=== PATIENT | female | born 1980 | race Caucasian/White ===

== ENCOUNTER 2022-06-23 20:12 | Emergency (ER) | payer OTHER ==
[2022-06-23] MEDS ORDERED: Ketorolac Tromethamine 30 MG/ML VIAL ONE (22:45)
[2022-06-23] MEDS ORDERED: Morphine 4 MG/ML VIAL ONE (22:45)
== END 2022-06-23 23:45 | disposition home or self-care (01) ==
LOC: ERS 20:12
DX: M54.16 Radiculopathy, lumbar region (principal); I10 Essential (primary) hypertension; E78.00 Pure hypercholesterolemia, unspecified; F17.210 Nicotine dependence, cigarettes, uncomplicated
CPT/HCPCS: 96372; J1885; J2270

== ENCOUNTER 2024-03-30 05:46 | Inpatient (IN) | payer SELFPAY ==
[2024-03-30] MEDS ORDERED: Ondansetron PF 4 MG/2 ML Vial IVP PRN (07:53)
[2024-03-30] MEDS ORDERED: Fioricet 325/50/40 mg Tablet PO PRN (08:39)
[2024-03-30] MEDS: Ipratropium/Albuterol 3 ML NEB NEB SCH ×2 (08:49→11:12)
[2024-03-30] MEDS: Enoxaparin 40 MG (0.4 mL) SYRINGE SC SCH (09:03)
[2024-03-30] MEDS: ALPRAZolam 0.25 MG TAB PO SCH ×3 (09:04→20:25)
[2024-03-30] MEDS: methylPREDNISolone Sod Succ/PF 125 MG/2 ML VIAL IVP SCH (09:04)
[2024-03-30] MEDS: Nicotine 21 MG PATCH TD SCH (09:04)
[2024-03-30] MEDS: Benzonatate 100 MG CAP PO PRN (09:41)
[2024-03-30] MEDS: guaiFENesin ER 600 MG TAB PO SCH ×2 (09:41→20:25)
[2024-03-30] MEDS: Acetaminophen 325 MG TAB PO PRN (09:44)
[2024-03-30] MEDS: Magnesium Sulfate In Water 4 GM in Premix 1 BAG IVPB SCH (12:21)
[2024-03-30] MEDS: Azithromycin 500 MG in Sodium Chloride 0.9% 250 ML 250 ML IVPB SCH (13:24)
[2024-03-30] MEDS: Ipratropium/Albuterol 3 ML NEB NEB PRN (13:45)
[2024-03-30 15:25] LABS: Actual Bicarbonate (HCO3a) 22.6 mEq/L (22-28); Base Excess (BEa) -2.9 mEq/L (-2.0 to +3.0); CO2 Tension 41.5 mmHg (35.0-45.0); Carboxyhemoglobin (COHb) 1.4 gm% (0.0-3.0); Hematocrit-ABG 41 % (36.0-47.0); Hemoglobin (Hb) 14.1 g/dL (12.0-16.0); O2 Tension (PaO2), arterial 68.1 mmHg (80.0-100.0); Potassium - ABG Lab 4.18 mmol/L (3.70-5.30); pH, Arterial 7.353 (7.35-7.45)
[2024-03-30 15:29] LABS: ALV-art Gradient 108.185 mmHg (0-20); Puncture Site Left Radial artery
[2024-03-30 17:23] LABS: BHCG - Serum Negative (NEGATIVE); Pregs Control Background? CLEAR/WHITE (CLR/WHITE); Pregs Control Bar Appear? YES (CONTROL BAR)
[2024-03-30] MEDS: Mometasone 200 MCG/Formoterol 5 MCG 120 PUFF INHALER INH SCH (18:12)
[2024-03-30] MEDS: Loratadine 10 MG TAB PO SCH (20:26)
[2024-03-31] MEDS: Dexmedetomidine In 0.9 % NaCl 100 ML IVPB SCH (03:52)
[2024-03-31 05:58] LABS: #Basophils Less than 0.03 10x3/uL (0.0-0.2); #Eosinophils Less than 0.03 10x3/uL (0.0-0.7); %Basophils 0.2 % (0.0-1.0); %Lymphocytes 4.9 % (21.0-51.0); %Monocytes 7.8 % (0.0-10.0); %Neutrophils 85.9 % (42.0-75.0); Hematocrit 44.1 % (36.0-47.0); Mean Corpuscular HGB CONC 31.7 g/dL (32.0-36.0); Mean Corpuscular Hemoglobin 30.1 pg (27.0-31.0); Mean Corpuscular Volume 94.8 fL (78.0-98.0); Mean Platelet Volume 10.8 fL (7.4-10.4); Platelet Count 227 10x3/uL (130-400); RBC Distribution Width 14.1 % (11.5-14.5); Red Blood Cell (RBC) Count 4.65 mill/uL (4.20-5.40)
[2024-03-31] MEDS: hydrALAZINE 20 MG/ML VIAL SLOW IVP PRN (06:09)
[2024-03-31 06:24] LABS: Anion Gap 13 mmol/L (10-20); BUN (Urea Nitrogen) 11 mg/dL (7.0-18.7); Calc. Creatinine Clearance 198 mL/min (70-130); Calcium 8.4 mg/dL (7.8-10.44); Carbon Dioxide 23 mmol/L (22-29); Chloride 105 mmol/L (98-107); Estimated GFR 116; Glucose 120 mg/dL (70-105); Potassium 5.4 mmol/L (3.5-5.1); Sodium 136 mmol/L (136-145)
[2024-03-31] MEDS: Labetalol HCl 100 MG/20 ML VIAL SLOW IVP PRN (09:16)
[2024-03-31] MEDS: Magnesium 2 GM/50 ML(in water) 2 GM in Premix 1 BAG IVPB SCH (09:18)
[2024-03-31] MEDS: Ipratropium/Albuterol 3 ML NEB NEB SCH (09:44)
[2024-03-31 09:52] LABS: Actual Bicarbonate (HCO3a) 27.7 mEq/L (22-28); Base Excess (BEa) -2.4 mEq/L (-2.0 to +3.0); Calcium, Ionized (arterial) 1.18 mmol/L (1.12-1.30); Carboxyhemoglobin (COHb) 0.8 gm% (0.0-3.0); Hematocrit-ABG 45 % (36.0-47.0); Hemoglobin (Hb) 15.2 g/dL (12.0-16.0); O2 Tension (PaO2), arterial 112.7 mmHg (80.0-100.0); Potassium - ABG Lab 5.36 mmol/L (3.70-5.30)
[2024-03-31 09:59] LABS: ALV-art Gradient 152.925 mmHg (0-20); CO2 Tension 72.7 mmHg (35.0-45.0); Puncture Site Right Radial artery; pH, Arterial 7.199 (7.35-7.45)
[2024-03-31] MEDS: Propofol 1,000 MG/100 ML VIAL IV ONE (10:00)
[2024-03-31] MEDS: Fentanyl CADD 100 ML ONE (11:07)
[2024-03-31] MEDS ORDERED: Morphine 2 MG/ML VIAL SLOW IVP PRN (12:00)
[2024-03-31] MEDS ORDERED: DISCONTINUE PREVIOUS NARCOTIC PAIN MEDICATIONS AND BENZODIAZEPINES FS SCH (12:00)
[2024-03-31] MEDS ORDERED: Fentanyl BOLUS 250 ML IVPB PRN (12:00)
[2024-03-31] MEDS ORDERED: Propofol BOLUS 1,000 MG/100 ML VIAL IV PRN (12:00)
[2024-03-31] MEDS: Propofol 1,000 MG/100 ML VIAL IV PRN (12:53)
[2024-03-31 14:32] LABS: Actual Bicarbonate (HCO3a) 28.4 mEq/L (22-28); Base Excess (BEa) 0.7 mEq/L (-2.0 to +3.0); CO2 Tension 59.2 mmHg (35.0-45.0); O2 Tension (PaO2), arterial 94.5 mmHg (80.0-100.0); pH, Arterial 7.299 (7.35-7.45)
[2024-03-31 14:33] LABS: Calcium, Ionized (arterial) 1.14 mmol/L (1.12-1.30); Carboxyhemoglobin (COHb) 0.9 gm% (0.0-3.0); Hematocrit-ABG 41 % (36.0-47.0); Potassium - ABG Lab 4.52 mmol/L (3.70-5.30)
[2024-03-31] MEDS: Dextrose 50% Abboject 50 ML SYRINGE SLOW IVP SCH (17:51)
[2024-03-31] MEDS: Insulin Regular, Human 100 UNIT/ML 10 ML VIAL IVP SCH (17:52)
[2024-03-31] MEDS: THEOPHYLLINE 80 MG/15 ML PO SCH (19:04)
[2024-03-31] MEDS: UDCUP PO SCH (19:04)
[2024-03-31] MEDS ORDERED: GUAIFENESIN SF SOLN 200 MG/10 ML UDCUP PER TUBE PRN (20:29)
[2024-03-31] MEDS: Montelukast Sodium 10 mg Tablet PO SCH (20:49)
[2024-03-31] MEDS: Lorazepam 2 MG/ML VIAL SLOW IVP PRN (21:12)
[2024-04-01] MEDS: Fentanyl CADD 100 ML IV SCH (02:42)
[2024-04-01] MEDS ORDERED: Fioricet 325/50/40 mg Tablet PER TUBE PRN (03:32)
[2024-04-01] MEDS ORDERED: Benzonatate 100 MG CAP PO PRN (03:35)
[2024-04-01] MEDS: UDCUP PER TUBE SCH (05:44)
[2024-04-01] MEDS: THEOPHYLLINE 80 MG/15 ML PER TUBE SCH (05:44)
[2024-04-01 05:59] LABS: #Basophils Less than 0.03 10x3/uL (0.0-0.2); #Eosinophils Less than 0.03 10x3/uL (0.0-0.7); %Basophils 0.1 % (0.0-1.0); %Lymphocytes 4.3 % (21.0-51.0); %Monocytes 8.4 % (0.0-10.0); %Neutrophils 86.7 % (42.0-75.0); Hematocrit 40.3 % (36.0-47.0); Hemoglobin 12.8 g/dL (12.0-16.0); Mean Corpuscular HGB CONC 31.8 g/dL (32.0-36.0); Mean Corpuscular Hemoglobin 30.3 pg (27.0-31.0); Mean Corpuscular Volume 95.5 fL (78.0-98.0); Mean Platelet Volume 11.3 fL (7.4-10.4); Platelet Count 219 10x3/uL (130-400); RBC Distribution Width 14.5 % (11.5-14.5); Red Blood Cell (RBC) Count 4.22 mill/uL (4.20-5.40)
[2024-04-01] MEDS ORDERED: UDCUP PO SCH ×2 (06:00→09:00)
[2024-04-01] MEDS ORDERED: THEOPHYLLINE 80 MG/15 ML PO SCH ×2 (06:00→09:00)
[2024-04-01 06:46] LABS: Anion Gap 14 mmol/L (10-20); BUN (Urea Nitrogen) 25 mg/dL (7.0-18.7); Calc. Creatinine Clearance 142 mL/min (70-130); Calcium 8.6 mg/dL (7.8-10.44); Carbon Dioxide 27 mmol/L (22-29); Chloride 101 mmol/L (98-107); Estimated GFR 107; Glucose 137 mg/dL (70-105); Potassium 4.5 mmol/L (3.5-5.1); Sodium 137 mmol/L (136-145)
[2024-04-01 08:29] LABS: Actual Bicarbonate (HCO3a) 30.4 mEq/L (22-28); Base Excess (BEa) 2.9 mEq/L (-2.0 to +3.0); CO2 Tension 59.3 mmHg (35.0-45.0); Calcium, Ionized (arterial) 1.14 mmol/L (1.12-1.30); Carboxyhemoglobin (COHb) 0.5 gm% (0.0-3.0); Hematocrit-ABG 40 % (36.0-47.0); Hemoglobin (Hb) 13.6 g/dL (12.0-16.0); O2 Tension (PaO2), arterial 105.8 mmHg (80.0-100.0); Potassium - ABG Lab 4.43 mmol/L (3.70-5.30); pH, Arterial 7.327 (7.35-7.45)
[2024-04-01 08:31] LABS: Puncture Site Right Radial artery
[2024-04-01 08:32] LABS: ALV-art Gradient 140.925 mmHg (0-20)
[2024-04-01] MEDS ORDERED: Sterile Water 10 ML VIAL FS PRN (20:47)
[2024-04-01] MEDS: Montelukast Sodium 10 mg Tablet PER TUBE SCH (21:14)
[2024-04-01] MEDS: Vecuronium 10 MG VIAL IV SCH (21:14)
[2024-04-02] MEDS: Vecuronium Bromide 50 MG in Sodium Chloride 0.9% 250 ML 250 ML IV SCH (00:49)
[2024-04-02 04:45] LABS: #Basophils Less than 0.03 10x3/uL (0.0-0.2); #Eosinophils Less than 0.03 10x3/uL (0.0-0.7); %Basophils 0.1 % (0.0-1.0); %Lymphocytes 5.2 % (21.0-51.0); %Monocytes 10.4 % (0.0-10.0); %Neutrophils 83.1 % (42.0-75.0); Hematocrit 39.1 % (36.0-47.0); Hemoglobin 12.6 g/dL (12.0-16.0); Mean Corpuscular HGB CONC 32.2 g/dL (32.0-36.0); Mean Corpuscular Hemoglobin 30.9 pg (27.0-31.0); Mean Corpuscular Volume 95.8 fL (78.0-98.0); Mean Platelet Volume 11.2 fL (7.4-10.4); Platelet Count 204 10x3/uL (130-400); RBC Distribution Width 13.7 % (11.5-14.5); Red Blood Cell (RBC) Count 4.08 mill/uL (4.20-5.40)
[2024-04-02 05:16] LABS: Anion Gap 12 mmol/L (10-20); BUN (Urea Nitrogen) 22 mg/dL (7.0-18.7); Calc. Creatinine Clearance 155 mL/min (70-130); Calcium 8.2 mg/dL (7.8-10.44); Carbon Dioxide 31 mmol/L (22-29); Chloride 100 mmol/L (98-107); Estimated GFR 111; Glucose 146 mg/dL (70-105); Potassium 4.5 mmol/L (3.5-5.1); Sodium 138 mmol/L (136-145)
[2024-04-02 08:22] LABS: Actual Bicarbonate (HCO3a) 32.8 mEq/L (22-28); Base Excess (BEa) 5.8 mEq/L (-2.0 to +3.0); CO2 Tension 58.2 mmHg (35.0-45.0); Hematocrit-ABG 39 % (36.0-47.0); Hemoglobin (Hb) 13.4 g/dL (12.0-16.0); O2 Tension (PaO2), arterial 60.7 mmHg (80.0-100.0); Potassium - ABG Lab 4.38 mmol/L (3.70-5.30); pH, Arterial 7.369 (7.35-7.45)
[2024-04-02 08:30] LABS: Puncture Site Left Radial artery
[2024-04-03 05:36] LABS: #Basophils Less than 0.03 10x3/uL (0.0-0.2); #Eosinophils Less than 0.03 10x3/uL (0.0-0.7); %Basophils 0.2 % (0.0-1.0); %Lymphocytes 7.6 % (21.0-51.0); %Monocytes 7.5 % (0.0-10.0); %Neutrophils 83.7 % (42.0-75.0); Hematocrit 34.6 % (36.0-47.0); Hemoglobin 11.3 g/dL (12.0-16.0); Mean Corpuscular HGB CONC 32.7 g/dL (32.0-36.0); Mean Corpuscular Hemoglobin 30.8 pg (27.0-31.0); Mean Corpuscular Volume 94.3 fL (78.0-98.0); Mean Platelet Volume 10.6 fL (7.4-10.4); Platelet Count 179 10x3/uL (130-400); RBC Distribution Width 13.5 % (11.5-14.5); Red Blood Cell (RBC) Count 3.67 mill/uL (4.20-5.40)
[2024-04-03 06:47] LABS: Anion Gap 12 mmol/L (10-20); BUN (Urea Nitrogen) 16 mg/dL (7.0-18.7); Calc. Creatinine Clearance 145 mL/min (70-130); Calcium 8.2 mg/dL (7.8-10.44); Carbon Dioxide 33 mmol/L (22-29); Chloride 99 mmol/L (98-107); Estimated GFR 107; Glucose 172 mg/dL (70-105); Potassium 3.9 mmol/L (3.5-5.1); Sodium 140 mmol/L (136-145)
[2024-04-03 07:09] LABS: Actual Bicarbonate (HCO3a) 32.6 mEq/L (22-28); Base Excess (BEa) 7.5 mEq/L (-2.0 to +3.0); CO2 Tension 47.8 mmHg (35.0-45.0); Calcium, Ionized (arterial) 1.08 mmol/L (1.12-1.30); Carboxyhemoglobin (COHb) 0.9 gm% (0.0-3.0); Hematocrit-ABG 36 % (36.0-47.0); Hemoglobin (Hb) 12.4 g/dL (12.0-16.0); O2 Tension (PaO2), arterial 61.1 mmHg (80.0-100.0); Puncture Site Right Radial artery; pH, Arterial 7.451 (7.35-7.45)
[2024-04-03] MEDS: Acetaminophen 650 MG/20.3 ML UDCUP PER TUBE PRN (09:08)
[2024-04-03] MEDS: Ipratropium/Albuterol 3 ML NEB NEB SCH (14:07)
[2024-04-03] MEDS ORDERED: ALPRAZolam 0.25 MG TAB PO PRN (23:38)
[2024-04-04 05:33] LABS: Anion Gap 13 mmol/L (10-20); BUN (Urea Nitrogen) 18 mg/dL (7.0-18.7); Calc. Creatinine Clearance 141 mL/min (70-130); Calcium 8.6 mg/dL (7.8-10.44); Carbon Dioxide 31 mmol/L (22-29); Chloride 96 mmol/L (98-107); Estimated GFR 103; Glucose 281 mg/dL (70-105); Potassium 3.7 mmol/L (3.5-5.1); Sodium 136 mmol/L (136-145)
[2024-04-04 06:25] LABS: Hematocrit 33.6 % (36.0-47.0); Hemoglobin 10.8 g/dL (12.0-16.0); Mean Corpuscular HGB CONC 32.1 g/dL (32.0-36.0); Mean Corpuscular Hemoglobin 30.6 pg (27.0-31.0); Mean Corpuscular Volume 95.2 fL (78.0-98.0); Mean Platelet Volume 11.2 fL (7.4-10.4); Platelet Count 174 10x3/uL (130-400); RBC Distribution Width 13.9 % (11.5-14.5); Red Blood Cell (RBC) Count 3.53 mill/uL (4.20-5.40)
[2024-04-04 07:22] LABS: Actual Bicarbonate (HCO3a) 32.7 mEq/L (22-28); Base Excess (BEa) 8.5 mEq/L (-2.0 to +3.0); CO2 Tension 43.4 mmHg (35.0-45.0); Carboxyhemoglobin (COHb) 0.3 gm% (0.0-3.0); Hematocrit-ABG 35 % (36.0-47.0); Hemoglobin (Hb) 11.9 g/dL (12.0-16.0); Potassium - ABG Lab 3.73 mmol/L (3.70-5.30); pH, Arterial 7.495 (7.35-7.45)
[2024-04-04 07:25] LABS: Puncture Site Right Radial artery
[2024-04-04 07:30] LABS: Anisocytosis SLIGHT = 6-15 cells HPF (0-5); Band 42 % (5-11); Basophilic Stippling SLIGHT = 1-2 cells HPF (None Seen); Large Platelets 2.9 % (0-5); Lymphocytes 6 % (21-51); Macrocytosis SLIGHT = 6-15 cells HPF (0-5); Metamyelocyte 3 % (0-0); Monocytes 9 % (0-10); Myelocyte 1 % (0-0); Neutrophil 40 % (42-75); Platelet Adequacy Comment Platelets Normal; Polychromasia SLIGHT = 2-3 cells HPF (0-2); Smudge Cells 21.4 %
[2024-04-04] MEDS: ALPRAZolam 0.25 MG TAB PO SCH (09:21)
[2024-04-04] MEDS ORDERED: Vecuronium 10 MG VIAL IV PRN (13:48)
[2024-04-04] MEDS: cefTRIAXone\\ROCEPHIN 2 GM in Sodium Chloride 0.9% 100 ML IVPB SCH (14:32)
[2024-04-05 05:25] LABS: Anion Gap 11 mmol/L (10-20); BUN (Urea Nitrogen) 21 mg/dL (7.0-18.7); Calc. Creatinine Clearance 163 mL/min (70-130); Carbon Dioxide 34 mmol/L (22-29); Chloride 95 mmol/L (98-107); Estimated GFR 111; Glucose 299 mg/dL (70-105); Potassium 4.3 mmol/L (3.5-5.1); Sodium 136 mmol/L (136-145)
[2024-04-05 05:32] LABS: Hematocrit 31.5 % (36.0-47.0); Hemoglobin 9.9 g/dL (12.0-16.0); Mean Corpuscular HGB CONC 31.4 g/dL (32.0-36.0); Mean Corpuscular Hemoglobin 30.2 pg (27.0-31.0); Mean Platelet Volume 11.5 fL (7.4-10.4); Platelet Count 165 10x3/uL (130-400); RBC Distribution Width 13.6 % (11.5-14.5); Red Blood Cell (RBC) Count 3.28 mill/uL (4.20-5.40)
[2024-04-05 06:18] LABS: Band 36 % (5-11); Large Platelets 7.6 % (0-5); Lymphocytes 8 % (21-51); Monocytes 3 % (0-10); Neutrophil 53 % (42-75); Platelet Adequacy Comment Platelets Normal; Polychromasia SLIGHT = 2-3 cells HPF (0-2); Smudge Cells 1.9 %
[2024-04-05 07:29] LABS: Calcium 9.2 mg/dL (7.8-10.44)
[2024-04-05 08:28] LABS: Actual Bicarbonate (HCO3a) 37.3 mEq/L (22-28); CO2 Tension 58.7 mmHg (35.0-45.0); Calcium, Ionized (arterial) 1.15 mmol/L (1.12-1.30); Carboxyhemoglobin (COHb) 0.4 gm% (0.0-3.0); Hematocrit-ABG 32 % (36.0-47.0); Hemoglobin (Hb) 10.8 g/dL (12.0-16.0); pH, Arterial 7.421 (7.35-7.45)
[2024-04-05 08:33] LABS: ALV-art Gradient 144.825 mmHg (0-20); Puncture Site Left Radial artery
[2024-04-05] MEDS: methylPREDNISolone Sod Succ 40 MG VIAL IVP SCH (09:15)
[2024-04-06 04:22] LABS: Anion Gap 16 mmol/L (10-20); BUN (Urea Nitrogen) 32 mg/dL (7.0-18.7); Calc. Creatinine Clearance 159 mL/min (70-130); Calcium 8.8 mg/dL (7.8-10.44); Carbon Dioxide 32 mmol/L (22-29); Chloride 96 mmol/L (98-107); Estimated GFR 111; Glucose 365 mg/dL (70-105); Sodium 139 mmol/L (136-145)
[2024-04-06 04:28] LABS: Hematocrit 30.8 % (36.0-47.0); Hemoglobin 9.7 g/dL (12.0-16.0); Mean Corpuscular HGB CONC 31.5 g/dL (32.0-36.0); Mean Corpuscular Hemoglobin 30.3 pg (27.0-31.0); Mean Corpuscular Volume 96.3 fL (78.0-98.0); Mean Platelet Volume 11.3 fL (7.4-10.4); Platelet Count 196 10x3/uL (130-400); RBC Distribution Width 13.2 % (11.5-14.5)
[2024-04-06 07:23] LABS: Band 26 % (5-11); Lymphocytes 3 % (21-51); Metamyelocyte 4 % (0-0); Monocytes 4 % (0-10); Myelocyte 4 % (0-0); Neutrophil 59 % (42-75); Nucleated RBC (Manual Ct) 1 % (0); Platelet Adequacy Comment Platelets Normal; Polychromasia SLIGHT = 2-3 cells HPF (0-2)
[2024-04-06 08:49] LABS: ALV-art Gradient 148.625 mmHg (0-20); Base Excess (BEa) 7.3 mEq/L (-2.0 to +3.0); CO2 Tension 52.7 mmHg (35.0-45.0); Calcium, Ionized (arterial) 1.17 mmol/L (1.12-1.30); Carboxyhemoglobin (COHb) 0.6 gm% (0.0-3.0); Hematocrit-ABG 32 % (36.0-47.0); O2 Tension (PaO2), arterial 70.7 mmHg (80.0-100.0); Potassium - ABG Lab 5.03 mmol/L (3.70-5.30); Puncture Site Left Radial artery; pH, Arterial 7.415 (7.35-7.45)
[2024-04-06] MEDS: Furosemide 40 MG (4 mL) VIAL IVP SCH (10:24)
[2024-04-07] MEDS ORDERED: Dextrose 5% in Water 1,000 ML IV PRN (03:56)
[2024-04-07] MEDS ORDERED: Glucagon 1 MG/ML KIT IM PRN (03:56)
[2024-04-07] MEDS ORDERED: Dextrose 50% Abboject 50 ML SYRINGE SLOW IVP PRN (03:56)
[2024-04-07] MEDS: Insulin Lispro 100 UNIT/ML 10 ML VIAL SC PRN (04:33)
[2024-04-07 04:41] LABS: Hematocrit 31.2 % (36.0-47.0); Mean Corpuscular HGB CONC 32.1 g/dL (32.0-36.0); Mean Corpuscular Hemoglobin 30.5 pg (27.0-31.0); Mean Corpuscular Volume 95.1 fL (78.0-98.0); Platelet Count 211 10x3/uL (130-400); RBC Distribution Width 13.2 % (11.5-14.5); Red Blood Cell (RBC) Count 3.28 mill/uL (4.20-5.40)
[2024-04-07 04:52] LABS: Anion Gap 14 mmol/L (10-20); BUN (Urea Nitrogen) 33 mg/dL (7.0-18.7); Calc. Creatinine Clearance 183 mL/min (70-130); Calcium 8.5 mg/dL (7.8-10.44); Carbon Dioxide 33 mmol/L (22-29); Chloride 95 mmol/L (98-107); Estimated GFR 114; Glucose 350 mg/dL (70-105); Potassium 4.9 mmol/L (3.5-5.1); Sodium 137 mmol/L (136-145)
[2024-04-07 05:10] LABS: Band 11 % (5-11); Hypochromia SLIGHT = 6-15 cells HPF (0-5); Lymphocytes 2 % (21-51); Macrocytosis SLIGHT = 6-15 cells HPF (0-5); Metamyelocyte 9 % (0-0); Monocytes 12 % (0-10); Myelocyte 10 % (0-0); Neutrophil 56 % (42-75); Platelet Adequacy Comment Platelets Normal; Polychromasia SLIGHT = 2-3 cells HPF (0-2)
[2024-04-07 07:29] LABS: Actual Bicarbonate (HCO3a) 31.3 mEq/L (22-28); Base Excess (BEa) 5.7 mEq/L (-2.0 to +3.0); CO2 Tension 50.3 mmHg (35.0-45.0); Calcium, Ionized (arterial) 1.13 mmol/L (1.12-1.30); Carboxyhemoglobin (COHb) 1.1 gm% (0.0-3.0); Hematocrit-ABG 33 % (36.0-47.0); Hemoglobin (Hb) 11.3 g/dL (12.0-16.0); pH, Arterial 7.412 (7.35-7.45)
[2024-04-07 07:36] LABS: O2 Tension (PaO2), arterial 58.4 mmHg (80.0-100.0)
[2024-04-07 07:37] LABS: ALV-art Gradient 92.625 mmHg (0-20); Puncture Site Left Radial artery
[2024-04-07] MEDS: methylPREDNISolone Sod Succ 40 MG VIAL IVP SCH (08:54)
[2024-04-07] MEDS: Amlodipine 10 MG TAB PER TUBE SCH (09:36)
[2024-04-07] MEDS: Insulin NPH Human Isophane 100 UNITS/ML (10 ML VIAL) SC SCH (09:37)
[2024-04-08] MEDS: niCARdipine 25 MG in Sodium Chloride 0.9% 250 ML 250 ML IVPB SCH (01:47)
[2024-04-08 05:31] LABS: Hematocrit 37.8 % (36.0-47.0); Hemoglobin 12.3 g/dL (12.0-16.0); Mean Corpuscular HGB CONC 32.5 g/dL (32.0-36.0); Mean Corpuscular Hemoglobin 29.9 pg (27.0-31.0); Mean Corpuscular Volume 91.7 fL (78.0-98.0); Mean Platelet Volume 10.6 fL (7.4-10.4); Platelet Count 240 10x3/uL (130-400); RBC Distribution Width 13.3 % (11.5-14.5); Red Blood Cell (RBC) Count 4.12 mill/uL (4.20-5.40)
[2024-04-08] MEDS: niCARdipine 50 MG, Admixture Fee 1 EACH in Sodium Chloride 0.9% 250 ML 230 ML IV SCH (05:31)
[2024-04-08 05:41] LABS: Anion Gap 14 mmol/L (10-20); BUN (Urea Nitrogen) 25 mg/dL (7.0-18.7); Calc. Creatinine Clearance 167 mL/min (70-130); Calcium 8.6 mg/dL (7.8-10.44); Carbon Dioxide 28 mmol/L (22-29); Chloride 95 mmol/L (98-107); Estimated GFR 111; Glucose 322 mg/dL (70-105); Potassium 4.1 mmol/L (3.5-5.1); Sodium 133 mmol/L (136-145)
[2024-04-08 06:00] LABS: Band 5 % (5-11); Large Platelets 0.9 % (0-5); Lymphocytes 4 % (21-51); Metamyelocyte 6 % (0-0); Monocytes 5 % (0-10); Neutrophil 61 % (42-75); Platelet Adequacy Comment Platelets Increased; Polychromasia SLIGHT = 2-3 cells HPF (0-2); Reactive Lymphocytes 2 % (0-10)
[2024-04-08 07:18] LABS: Actual Bicarbonate (HCO3a) 30.2 mEq/L (22-28); Base Excess (BEa) 6.3 mEq/L (-2.0 to +3.0); CO2 Tension 40.4 mmHg (35.0-45.0); Calcium, Ionized (arterial) 1.13 mmol/L (1.12-1.30); Carboxyhemoglobin (COHb) 0.6 gm% (0.0-3.0); Hematocrit-ABG 39 % (36.0-47.0); Hemoglobin (Hb) 13.3 g/dL (12.0-16.0); Potassium - ABG Lab 3.89 mmol/L (3.70-5.30); pH, Arterial 7.491 (7.35-7.45)
[2024-04-08 07:22] LABS: Puncture Site Right Radial artery
[2024-04-08] MEDS ORDERED: Vancomycin (BATCH) 2.5 GM in Premix 1 BAG IVPB SCH (10:00)
[2024-04-08] MEDS: Dexmedetomidine In 0.9 % NaCl 100 ML IVPB SCH (10:35)
[2024-04-08] MEDS: Vancomycin (BATCH) 2 GM in Premix 1 BAG IVPB SCH (10:42)
[2024-04-08] MEDS: Insulin NPH Human Isophane 100 UNITS/ML (10 ML VIAL) SC SCH (20:34)
[2024-04-08] MEDS ORDERED: Vancomycin 1 GM in Premix 1 BAG IVPB SCH (21:00)
[2024-04-08] MEDS: Vancomycin 1.5 GRAM/300 ML BAG 1.5 GM in Premix 1 BAG IVPB SCH (22:57)
[2024-04-08] MEDS ORDERED: Vancomycin (BATCH) 1.5 GM in Premix 1 BAG IVPB SCH (23:00)
[2024-04-08] MEDS: Insulin Lispro 100 UNIT/ML 10 ML VIAL SC PRN (23:40)
[2024-04-09 04:18] LABS: Hematocrit 35.7 % (36.0-47.0); Hemoglobin 11.8 g/dL (12.0-16.0); Mean Corpuscular HGB CONC 33.1 g/dL (32.0-36.0); Mean Corpuscular Hemoglobin 30.3 pg (27.0-31.0); Mean Corpuscular Volume 91.8 fL (78.0-98.0); Mean Platelet Volume 10.4 fL (7.4-10.4); Platelet Count 247 10x3/uL (130-400); RBC Distribution Width 13.3 % (11.5-14.5); Red Blood Cell (RBC) Count 3.89 mill/uL (4.20-5.40)
[2024-04-09 04:25] LABS: Anion Gap 14 mmol/L (10-20); BUN (Urea Nitrogen) 27 mg/dL (7.0-18.7); Calc. Creatinine Clearance 164 mL/min (70-130); Calcium 8.5 mg/dL (7.8-10.44); Carbon Dioxide 24 mmol/L (22-29); Chloride 97 mmol/L (98-107); Estimated GFR 111; Glucose 312 mg/dL (70-105); Potassium 4.2 mmol/L (3.5-5.1); Sodium 131 mmol/L (136-145); Vancomycin, Random 23.1 ug/mL (See Comment)
[2024-04-09 05:03] LABS: Anisocytosis SLIGHT = 6-15 cells HPF (0-5); Band 8 % (5-11); Hypochromia SLIGHT = 6-15 cells HPF (0-5); Lymphocytes 4 % (21-51); Metamyelocyte 5 % (0-0); Monocytes 3 % (0-10); Myelocyte 3 % (0-0); Neutrophil 73 % (42-75); Platelet Adequacy Comment Platelets Normal; Polychromasia SLIGHT = 2-3 cells HPF (0-2)
[2024-04-09 06:44] LABS: Base Excess (BEa) 3.8 mEq/L (-2.0 to +3.0); CO2 Tension 40.3 mmHg (35.0-45.0); Calcium, Ionized (arterial) 1.13 mmol/L (1.12-1.30); Hematocrit-ABG 39 % (36.0-47.0); Hemoglobin (Hb) 13.1 g/dL (12.0-16.0); O2 Tension (PaO2), arterial 74.3 mmHg (80.0-100.0); Potassium - ABG Lab 4.15 mmol/L (3.70-5.30); pH, Arterial 7.459 (7.35-7.45)
[2024-04-09 06:45] LABS: ALV-art Gradient 160.525 mmHg (0-20); Puncture Site Right Radial artery
[2024-04-09] MEDS: Furosemide 40 MG (4 mL) VIAL SLOW IVP SCH (08:04)
[2024-04-09] MEDS: Insulin NPH Human Isophane 100 UNITS/ML (10 ML VIAL) SC SCH (08:07)
[2024-04-09] MEDS: Insulin Lispro 100 UNIT/ML 10 ML VIAL SC PRN (12:19)
[2024-04-10 07:32] LABS: Actual Bicarbonate (HCO3a) 26.9 mEq/L (22-28); Base Excess (BEa) 2.8 mEq/L (-2.0 to +3.0); CO2 Tension 39.6 mmHg (35.0-45.0); Calcium, Ionized (arterial) 1.11 mmol/L (1.12-1.30); Carboxyhemoglobin (COHb) 0.6 gm% (0.0-3.0); Hematocrit-ABG 45 % (36.0-47.0); Hemoglobin (Hb) 15.3 g/dL (12.0-16.0); O2 Tension (PaO2), arterial 71.6 mmHg (80.0-100.0); Puncture Site Right Radial artery
[2024-04-10] MEDS ORDERED: Sodium Chloride 0.9% (PF) 10 ML VIAL FS PRN (09:30)
[2024-04-10] MEDS: Polyethylene Glycol 3350 17 GM Packet PO SCH (10:13)
[2024-04-10] MEDS: DC Sedation Protocol FS ONE (10:13)
[2024-04-10] MEDS: Senokot S 8.6-50 MG TAB PO SCH (10:13)
[2024-04-10] MEDS: methylPREDNISolone Sod Succ 40 MG VIAL IVP SCH (11:13)
[2024-04-10] MEDS: Bisacodyl 10 MG SUPP PR SCH (11:14)
[2024-04-11 05:14] LABS: Hematocrit 42.6 % (36.0-47.0); Mean Corpuscular HGB CONC 32.9 g/dL (32.0-36.0); Mean Corpuscular Hemoglobin 29.8 pg (27.0-31.0); Mean Corpuscular Volume 90.6 fL (78.0-98.0); Mean Platelet Volume 9.9 fL (7.4-10.4); Platelet Count 316 10x3/uL (130-400); RBC Distribution Width 13.7 % (11.5-14.5)
[2024-04-11 05:21] LABS: Anion Gap 14 mmol/L (10-20); BUN (Urea Nitrogen) 22 mg/dL (7.0-18.7); Calc. Creatinine Clearance 199 mL/min (70-130); Calcium 8.5 mg/dL (7.8-10.44); Carbon Dioxide 23 mmol/L (22-29); Chloride 103 mmol/L (98-107); Estimated GFR 117; Glucose 118 mg/dL (70-105); Potassium 3.7 mmol/L (3.5-5.1); Sodium 136 mmol/L (136-145)
[2024-04-11 05:23] LABS: Vancomycin, Random 19.6 ug/mL (See Comment)
[2024-04-11 05:56] LABS: Band 8 % (5-11); Lymphocytes 13 % (21-51); Metamyelocyte 2 % (0-0); Monocytes 5 % (0-10); Neutrophil 60 % (42-75); Plasma Cells 0 % (0-0); Platelet Adequacy Comment Appears Adequate; Reactive Lymphocytes 8 % (0-10); Total Cell Count 100
[2024-04-11 06:11] VITALS: BMI 35.2
[2024-04-11] MEDS: Pantoprazole 40 MG VIAL IVP SCH (07:53)
[2024-04-11] MEDS: Acetaminophen 325 MG TAB PO PRN (08:15)
[2024-04-11] MEDS: methylPREDNISolone Sod Succ 40 MG VIAL IVP SCH (14:11)
[2024-04-11 14:20] VITALS: BMI 35.2
[2024-04-11] MEDS: Ipratropium/Albuterol 3 ML NEB NEB SCH (14:53)
[2024-04-12] MEDS: Vancomycin (BATCH) 1.5 GM in Premix 1 BAG IVPB SCH (00:08)
[2024-04-12 06:32] LABS: Hemoglobin 14.9 g/dL (12.0-16.0); Mean Corpuscular HGB CONC 33.1 g/dL (32.0-36.0); Mean Corpuscular Hemoglobin 29.9 pg (27.0-31.0); Mean Corpuscular Volume 90.2 fL (78.0-98.0); Mean Platelet Volume 10.2 fL (7.4-10.4); Platelet Count 410 10x3/uL (130-400); RBC Distribution Width 14.1 % (11.5-14.5); Red Blood Cell (RBC) Count 4.99 mill/uL (4.20-5.40)
[2024-04-12 06:35] LABS: Anion Gap 15 mmol/L (10-20); BUN (Urea Nitrogen) 21 mg/dL (7.0-18.7); Calc. Creatinine Clearance 172 mL/min (70-130); Calcium 8.6 mg/dL (7.8-10.44); Carbon Dioxide 22 mmol/L (22-29); Chloride 104 mmol/L (98-107); Estimated GFR 114; Glucose 80 mg/dL (70-105); Potassium 3.6 mmol/L (3.5-5.1); Sodium 137 mmol/L (136-145)
[2024-04-12 07:29] LABS: Band 5 % (5-11); Lymphocytes 12 % (21-51); Metamyelocyte 6 % (0-0); Monocytes 1 % (0-10); Myelocyte 4 % (0-0); Neutrophil 73 % (42-75); Nucleated RBC (Manual Ct) 1 % (0); Platelet Adequacy Comment Platelets Increased; Polychromasia SLIGHT = 2-3 cells HPF (0-2)
[2024-04-12 08:06] LABS: Hemoglobin A1c 6.5 % (4.0-6.0)
[2024-04-12] MEDS: Pantoprazole DR 40 MG TAB PO SCH (08:21)
[2024-04-13 07:33] LABS: #Basophils 0.05 10x3/uL (0.0-0.2); #Eosinophils Less than 0.03 10x3/uL (0.0-0.7); %Basophils 0.4 % (0.0-1.0); %Eosinophils 0.1 % (0.0-10.0); %Lymphocytes 15.1 % (21.0-51.0); %Monocytes 5.5 % (0.0-10.0); %Neutrophils 74.1 % (42.0-75.0); Hematocrit 41.6 % (36.0-47.0); Hemoglobin 13.5 g/dL (12.0-16.0); Mean Corpuscular HGB CONC 32.5 g/dL (32.0-36.0); Mean Corpuscular Hemoglobin 29.5 pg (27.0-31.0); Mean Platelet Volume 10.3 fL (7.4-10.4); Platelet Count 360 10x3/uL (130-400); Red Blood Cell (RBC) Count 4.57 mill/uL (4.20-5.40)
[2024-04-13 07:49] LABS: ALT (SGPT) 25 U/L (8-55); AST (SGOT) 13 U/L (5-34); Albumin 2.6 g/dL (3.5-5.0); Alkaline Phosphatase 75 U/L (40-110); Anion Gap 13 mmol/L (10-20); BUN (Urea Nitrogen) 25 mg/dL (7.0-18.7); Bilirubin, Total 0.7 mg/dL (0.2-1.2); Calc. Creatinine Clearance 178 mL/min (70-130); Calcium 8.2 mg/dL (7.8-10.44); Carbon Dioxide 22 mmol/L (22-29); Chloride 106 mmol/L (98-107); Estimated GFR 115; Globulin 3.5 g/dL (2.4-3.5); Glucose 82 mg/dL (70-105); Potassium 3.7 mmol/L (3.5-5.1); Protein, Total 6.1 g/dL (6.0-8.3); Sodium 137 mmol/L (136-145)
[2024-04-14 01:07] VITALS: TEMP 98.2
[2024-04-14 05:46] LABS: #Basophils 0.03 10x3/uL (0.0-0.2); %Basophils 0.4 % (0.0-1.0); %Eosinophils 0.4 % (0.0-10.0); %Lymphocytes 25.7 % (21.0-51.0); %Monocytes 7.5 % (0.0-10.0); %Neutrophils 61.7 % (42.0-75.0); Hematocrit 39.5 % (36.0-47.0); Mean Corpuscular HGB CONC 32.9 g/dL (32.0-36.0); Mean Corpuscular Volume 91.2 fL (78.0-98.0); Mean Platelet Volume 9.6 fL (7.4-10.4); Platelet Count 306 10x3/uL (130-400); RBC Distribution Width 13.6 % (11.5-14.5); Red Blood Cell (RBC) Count 4.33 mill/uL (4.20-5.40)
[2024-04-14 06:32] LABS: Anion Gap 10 mmol/L (10-20); BUN (Urea Nitrogen) 25 mg/dL (7.0-18.7); Calc. Creatinine Clearance 185 mL/min (70-130); Calcium 8.2 mg/dL (7.8-10.44); Carbon Dioxide 21 mmol/L (22-29); Chloride 109 mmol/L (98-107); Estimated GFR 116; Glucose 65 mg/dL (70-105); Potassium 3.2 mmol/L (3.5-5.1); Sodium 137 mmol/L (136-145)
[2024-04-14 07:52] VITALS: BP 126/80
[2024-04-14] MEDS: predniSONE 20 MG TAB PO SCH (08:40)
== END 2024-04-14 17:43 | disposition home or self-care (01) | DRG 207 ==
LOC: SURG A 06:35 → IMCU/EMU 17:00 → OBSVTOIN 03-31 00:36 → CCU 03-31 10:54 → T4-B 04-11 16:47
PROVIDERS: ADMIT Student in an Organized Health Care Education/Training Program; ATTEND Internal Medicine
PROC: 5A09357 Assistance with Respiratory Ventilation, Less than 24 Consecutive Hours, Continuous Positive Airway Pressure (ICD-10-PCS; 2024-03-30)
PROC: 0BH17EZ Insertion of Endotracheal Airway into Trachea, Via Natural or Artificial Opening (ICD-10-PCS; principal; 2024-03-31)
PROC: 5A1955Z Respiratory Ventilation, Greater than 96 Consecutive Hours (ICD-10-PCS; 2024-03-31)
PROC: 05H633Z Insertion of Infusion Device into Left Subclavian Vein, Percutaneous Approach (ICD-10-PCS; 2024-04-01)
PROC: 5A0935A Assistance with Respiratory Ventilation, Less than 24 Consecutive Hours, High Flow/Velocity Cannula (ICD-10-PCS; 2024-04-10)
DX: J45.901 Unspecified asthma with (acute) exacerbation (principal); J18.9 Pneumonia, unspecified organism; J96.01 Acute respiratory failure with hypoxia; J96.02 Acute respiratory failure with hypercapnia; J44.1 Chronic obstructive pulmonary disease with (acute) exacerbation; I31.39 Other pericardial effusion (noninflammatory); J44.0 Chronic obstructive pulmonary disease with (acute) lower respiratory infection; G43.909 Migraine, unspecified, not intractable, without status migrainosus; F17.210 Nicotine dependence, cigarettes, uncomplicated; F41.9 Anxiety disorder, unspecified; I10 Essential (primary) hypertension; E87.70 Fluid overload, unspecified; J45.902 Unspecified asthma with status asthmaticus; E66.9 Obesity, unspecified; R73.9 Hyperglycemia, unspecified; T38.0X5A Adverse effect of glucocorticoids and synthetic analogues, initial encounter; Z90.49 Acquired absence of other specified parts of digestive tract; E87.5 Hyperkalemia; R13.10 Dysphagia, unspecified; D72.829 Elevated white blood cell count, unspecified; Z88.5 Allergy status to narcotic agent; Z88.0 Allergy status to penicillin; Z88.1 Allergy status to other antibiotic agents; Z79.51 Long term (current) use of inhaled steroids; Z79.4 Long term (current) use of insulin; Z79.899 Other long term (current) drug therapy
CPT/HCPCS: 36415; 36416; 36600; 71045; 74018; 80048; 80053; 80198; 80202; 82805; 83036; 84703; 85025; 85060; 87040; 87077; 87149; 87186; 93306; 94002; 94003; 94640; 94660; J0360; J0456; J0696; J1650; J1815; J1940; J2060; J2470; J2704; J2919; J3010; J3370; J3475; J7050; J7512; J7620